=== PATIENT | male | born 1960 | race Caucasian/White ===

== ENCOUNTER → 2017-10-27 09:42 | Outpatient (CLI) | payer OTHER, SELFPAY ==
[2017-10-27 08:53] VITALS: BMI 29.0
--- NOTE | 2017-10-27 09:44 | RAD_ITS ---
STUDY: X-RAY - RIGHT SHOULDER REASON FOR EXAM: Male, 56 years old. Shoulder pain. History of rotator cuff tear. TECHNIQUE: A single axillary view(s) of the shoulder. COMPARISON: October 17, 2017 FINDINGS: The humeral head is congruent with the glenoid on the axillary view. No abnormalities are identified. RAD/Shoulder One View IMPRESSION: No abnormalities are identified. Electronically Signed: Adelfo Quevedo MD at 12:29 EST , Service support ,
== END ==
PROVIDERS: Family Provider Internal Medicine; PCP Internal Medicine; Visit Provider Orthopaedic Surgery
DX: M75.101 Unspecified rotator cuff tear or rupture of right shoulder, not specified as traumatic (principal)
CPT/HCPCS: 73020

== ENCOUNTER → 2017-11-17 10:15 | Outpatient (CLI) | payer OTHER, SELFPAY ==
--- NOTE | 2017-11-17 10:18 | MRI_ITS ---
STUDY: MRI RIGHT SHOULDER REASON FOR EXAM: Right shoulder pain and limited range of motion for 5 weeks. TECHNIQUE: Standardized fat and water weighted pulse sequences were obtained in all 3 orthogonal planes. COMPARISON: Radiographs 10/17/2017. FINDINGS: There is mild supraspinatus tendinosis and a small low-grade partial-thickness tear of the bursal surface of the distal anterior supraspinatus tendon (T2 sagittal image 10; proton density axial image 11) measuring 0.3 to 0.4 cm in diameter. Normal infraspinatus tendon. There is a small low-grade undersurface partial-thickness tear of the distal subscapularis tendon (proton density axial image 15). Normal teres minor tendon. Normal supraspinatus muscle. There is mild atrophy with mild partial fat replacement of the infraspinatus muscle (T2 sagittal images 15-20). Normal subscapularis muscle. Normal teres minor muscle. Normal glenohumeral articulation. There is mild subchondral cystic change of the greater tuberosity. There is a tear with nonvisualization of the intracapsular long biceps tendon. Normal labrum. Normal capsulo- ligamentous complex. There is acromioclavicular arthrosis without substantial undersurface osteophytes (T2 sagittal images 16, 17). There is a Type II morphology (curved), with a neutral orientation. There is a small volume of subacromial-subdeltoid bursal fluid. Normal visualized coracohumeral and coracoacromial ligaments. Normal deltoid muscle. Normal trapezius muscle. MRI/Upper Ext Joint Only(Routine) IMPRESSION: Small low-grade partial-thickness tears of the supraspinatus and subscapularis tendons. Mild atrophy of the infraspinatus muscle. Tear of the long biceps tendon. Acromioclavicular arthrosis. Mild subacromial-subdeltoid bursitis. Electronically Signed: Teo Butler MD at 11:32 EST Tel , Service support ,
== END ==
PROVIDERS: Family Provider Internal Medicine; PCP Internal Medicine; Visit Provider Orthopaedic Surgery
DX: M75.101 Unspecified rotator cuff tear or rupture of right shoulder, not specified as traumatic (principal); M75.41 Impingement syndrome of right shoulder
CPT/HCPCS: 73221

== ENCOUNTER 2017-12-07 08:52 | Day surgery (SDC) | payer OTHER, SELFPAY ==
--- NOTE | 2017-12-02 12:00 | EKG12_ITS ---
Test Reason : PRE OP Blood Pressure : / mmHG Vent. Rate : 069 BPM Atrial Rate : 069 BPM P-R Int : 152 ms QRS Dur : 098 ms QT Int : 368 ms P-R-T Axes : 073 087 070 degrees QTc Int : 394 ms Normal sinus rhythm Normal ECG Confirmed by LUCY BLUM, BC ([id number]), food editor LEE RONDON ([id number]) on 12/05/2017 2:37:05 PM Referred By: Mackenzie Wheatley Confirmed By:BC AYALA MD
[2017-12-02 12:25] LABS: Hematocrit 45.8 % (40-54); Hemoglobin 15.7 g/dl (13.0-16.5); Mean Corp Hgb Conc 34.3 g/gl (32-36); Mean Corpuscular Hgb 32.2 pg (27.0-32.0); Mean Corpuscular Volume 93.9 fL (80-94); Mean Platelet Vol. 9.7 fl (6.2-12.0); Platelet Count 239 K/mm3 (150-450); RBC Distribution Width CV 12.3 % (11.6-14.6); RBC Distribution Width SD 41.5 fl (35.1-43.9); Red Blood Count 4.88 M/mm3 (4.6-6.2); White Blood Count 7.6 K/mm3 (4.4-11.0)
[2017-12-02 12:28] LABS: Scan Indicated on CBC? Y/N NO
[2017-12-07] VITALS (7 sets, daily range): BP systolic 126–139; BP diastolic 78–96; PULSE 69–85; RESP 14–18; TEMP 36.1–36.8; O2SAT 92–98; BMI 29.0
[2017-12-07] MEDS: Cefazolin 2 GM in 0.9% Normal Saline 100 ML IV (11:30)
[2017-12-07] MEDS: Mupirocin Ointment 22gm Tube 1 APPLIC (13:25)
--- NOTE | 2017-12-07 13:30 | DCINST_ITS ---
Discharge Diet: No Restrictions - Remove dressings in 4 days and apply Band- Aids to incision sites, may use elbow and hand as tolerated, do pendulums 3 times daily, no overhead lifting, call with increased pain numbness tingling or further issues arise, follow-up in 2 weeks in the office, call with concerns Discharge Activity: May Not Drive May shower in (days): 1 Ice area for (Minutes): 20 - Every hour while awake. Weight Bearing Status: Weight bearing as tolerated Keep extremity elevated above heart level: Operative Extremity Call your doctor if your incision/area has: Continuous Slow Oozing, Sudden Increased Bleeding, Increased Pain/ Swelling, Increased Redness, Foul Smelling Discharge Call your doctor if you observe: Fever of 101 or Higher, Coldness, Increased Pain, Numbness or Tingling, Change in Color, Calf discomfort Allergies/Adverse Reactions: Allergies No Known Allergies Allergy (Verified 12/01/17 15:08) Medications to take at Discharge amlodipine 5 mg tablet 5 mg PO QDAY #30 tab 10/17/17 Pantoprazole Sodium 40 mg PO DAILY 12/01/17 Oxycodone HCl/Acetaminophen [Percocet 5/325] 1 - 2 tablet PO Q6H PRN PRN 5 Days #60 tablet 12/07/17 Zolpidem Tartrate [Ambien (Generic)] 5 mg PO QHS PRN PRN #14 tablet 12/07/17 The following prescriptions were given: Oxycodone HCl/Acetaminophen [Percocet 5/325] 1 - 2 tablet PO Q6H PRN PRN 5 Days #60 tablet PRN Reason: Pain Zolpidem Tartrate [Ambien (Generic)] 5 mg PO QHS PRN PRN #14 tablet PRN Reason: Insomnia Primary Care Physician: Idalia Pierre MD [Primary Care Provider] - Please Follow Up With: Mackenzie Wheatley, - [phone]
--- NOTE | 2017-12-07 13:30 | PCM.OPRPT ---
Report of Operation Date of Procedure: 12/07/17 Pre-Operative Diagnosis: Right shoulder rotator cuff tear, subacromial impingement syndrome/type 2 acromioplasty Post-Operative Diagnosis: Same Type of Anesthesia:: General/Regional Anesthesiologist: Abdiaziz Lopez Estimated Blood Loss (mL): none Fluids Replaced: 1500ml lr Description of Procedure: Preoperative note She is a 57-year-old male with right shoulder pain. Patient failed conservative treatment had weakness with elevation and external rotation and positive liftoff. MRI confirms partial subscap and supraspinatus tear. Patient elected to proceed with right shoulder arthroscopy repair is indicated. Risks, benefits, alternatives to surgery discussed with patient. Risks including but not limited to blood loss, blood clot, infection, neurovascular injury, need for revision surgery, failure procedure, loss of life and loss of limb. Patient is aware would like proceed with right shoulder arthroscopy repair is indicated. Operative note Patient seen and examined in preoperative holding area. Patient received a preoperative regional block. Right shoulder was marked. Patient was brought to the operating room and placed supine on the operating table. Signing, anesthesia, antibiotics were administered. Patient was placed in beachchair positioning and detention through beachchair position we did recheck the blood pressure which was stable throughout. All bony prominences well-padded SCDs were placed on his bilateral lower extremity. The right arm was prepped and draped in usual sterile fashion.We then marked out our landmarks for portal placement. We insufflated the humeral joint from the posterior portal. Timeout was performed. We had good return from R 18-gauge spinal needle. We then used 11 blade to create a posterior portal. We were able to visualize the glenohumeral joint. The there are no articular delaminations or cartilage deficiencies. The biceps was torn. The subscap was torn off of the leading edge off of the after the insertion. There was fibrillated changes and remnant biceps anchor there was some fibrillated changes and unstable labral pieces as well. We then created an anterior portal under direct visualization. We will visualize the subscap in better detail we were then able to debride back for our footprint for our subscap repair. We then looked in the inferior recess there were no loose bodies. We then treated the insertional labrum or the biceps was turned back to stable rim. We were able to visualize the articular surface of the rotator cuff tear and and marked it with a spinal needle. We also debrided the undersurface of the rotator cuff as there is some fibrillated changes on the infraspinatus and supraspinous. We then moved to our repair for a subscap. We used a bur to create our footprint for our repair. We then used 2 fiber links using a fast passed into the leading edge of the [place]. We placed these through the anchor down to the pulse ox of the footprint in normal standard fashion. We had good repair of the subscap at that point in good tension and good no tension on the repair. We then moved to the subacromial space. We created a lateral portal under direct visualization. We then moved use a combination of a shaver and a burner to resect the thickened bursa he had a quite extensive exterior [place] as well. We then debrided any bursitis and some adhesions he had on the top of the acromion. He had a type II acromion which was gently resected back with a bur to a stable co-plane. We then released as much of the bursa as we could, and resected it with a shaver. We coagulated any bleeders that we did encounter. We then moved to where are we had marked out our rotator cuff tear of the leading edge of the supraspinatus. There was also torn on the cement in the subacromial articular surface because of it was torn on both sides that there is a increased risk for him tearing the entire tear tendon we did decide to repair it. Placed 2 fiber links fiber tapes and 1 fiber link and placed into a swivel lock laterally. We had great reduction of the footprint at that point. We irrigated the subacromial space with copious amounts of sterile saline. We coagulated and we coagulated any bleeders. The incisions were closed with interrupted 4-0 nylon stitches. Sterile dressings were applied. Patient was placed in a sling. The patient tolerated procedure well there are no comp occasions patient was transferred to the recovery room in stable condition. Postoperative note Nonweightbearing right shoulder Pendulums 3 times a day Hospital pharmacy has prescriptions Call with increased pain numbness tingling or further issues arise Pictures given to This note was generated with [employer] software. It may contain incorrect words, spelling, and punctuation that were not noted in checking the note before signing.
[2017-12-07] MEDS: HYDROcodone Bitartrate/Apap 5/325 Tablet PO (15:11)
== END 2017-12-07 15:40 | disposition home or self-care (01) ==
LOC: SDC 08:53 → AC 08:54
PROVIDERS: Family Provider Internal Medicine; PCP Internal Medicine; Visit Provider Orthopaedic Surgery
PROC: (CPT 29827; principal; 2017-12-07 10:15)
DX: M75.101 Unspecified rotator cuff tear or rupture of right shoulder, not specified as traumatic (principal); M75.41 Impingement syndrome of right shoulder; M75.51 Bursitis of right shoulder; S46.811A Strain of other muscles, fascia and tendons at shoulder and upper arm level, right arm, initial encounter; X58.XXXA Exposure to other specified factors, initial encounter; Y93.9 Activity, unspecified; Y92.9 Unspecified place or not applicable; Y99.9 Unspecified external cause status; I10 Essential (primary) hypertension; K21.9 Gastro-esophageal reflux disease without esophagitis; F17.200 Nicotine dependence, unspecified, uncomplicated; Z79.1 Long term (current) use of non-steroidal anti-inflammatories (NSAID); Z79.899 Other long term (current) drug therapy
CPT/HCPCS: 01630; 29826; 29827; 64415; 36415; 85027; 93005; J7120; J2405

== ENCOUNTER → 2019-05-29 10:01 | Outpatient (CLI) | payer OTHER, SELFPAY ==
[2019-05-29 08:59] VITALS: BMI 27.2
--- NOTE | 2019-05-29 10:03 | RAD_ITS ---
STUDY: X-RAY - UNILATERAL RIBS ( RIGHT ) WITH CHEST REASON FOR EXAM: Male, 58 years old. Fall. Pain. TECHNIQUE - RIBS: 4 view(s) of the ribs. TECHNIQUE - CHEST: Frontal view COMPARISON: None. FINDINGS - RIBS: There are no displaced rib fractures identified. FINDINGS - CHEST: The lungs are clear. There are no pleural effusions. There is no pneumothorax. The heart is normal in size. RAD/Ribs Uni Min 3V w/PA Chest IMPRESSION: RIBS: No displaced rib fracture identified. CHEST: Clear lungs. Electronically Signed: Boyd Zurita, at 22:37 EDT Tel , Service support ,
== END ==
PROVIDERS: Family Provider Internal Medicine; PCP Internal Medicine; Referring Provider Nurse Practitioner Family; Visit Provider Nurse Practitioner Family
DX: R07.81 Pleurodynia (principal); W19.XXXA Unspecified fall, initial encounter
CPT/HCPCS: 71101

== ENCOUNTER 2020-06-06 09:28 | Day surgery (SDC) | payer OTHER, SELFPAY ==
[2020-05-22 15:34] VITALS: BMI 27.9
--- NOTE | 2020-06-06 | LES_PTH ---
PATIENT: ELIAZAR COOK Denis LOC: [facility] [place] U#:[id number] AGE/SX: 59/M ROOM: RE06/06/[address]: Dr. Eliazar Ibarra MD : 1960 BED: DIS: 06/06/2020 SPEC #: [id number] RECD: 06/06/20 13:15 STATUS: ZHANE AUSTIN #: [id number] ORIANA: 06/06/20 00:[address]: Eliazar Ibarra DEPT: SURGICAL PATHOLOGY RECD BY: Familia Martinez ENTERED: 06/09/20 08:19 SP TYPE: Lesion OTHR DR: Dr. 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 Extensive solar elastosis. See comment. AM:stiven 06/10/20 COMMENT The carcinoma is completely excised in the planes examined. MICROSCOPIC DESCRIPTION Slides are reviewed. GROSS DESCRIPTION Received in fixative is one container labeled with the patient's name and designated left scientologist area lesion. The specimen consists of a disc of pink-florez excised skin measuring 3.2 cm in diameter and 0.4 cm in thickness. The cutaneous surface displays an irregular ulcerated area measuring 1.8 x 1.5 x 0.2 cm. A suture is present at the 12 o'clock position. The specimen is differentially inked as follows: surface - red, 12 o'clock - black, 3 o'clock - blue, 6 o'clock - green and 9 o'clock - yellow. The specimen is serially sectioned and totally submitted in three cassettes. / AM:stiven 06/09/20 TC:0 CPT: 25660
--- NOTE | 2020-06-06 08:25 | HP.PCM_ITS ---
History and Physical Date of Admission: 06/06/20 HISTORY OF PRESENT ILLNESS 59 year old man presents with a nonhealing ulcerated lesion on his left buddhism/preauricular area that had been increasing in size over the last several months. He went to see Dermatology who performed a shave biopsy on 04/21/20. It showed a nodular basal cell carcinoma. He denies fever. He denies trauma. He denies recent infection. There is intermittent drainage. Denies bleeding. He presents at this time for further evaluation and treatment. PAST MEDICAL HISTORY Basal cell carcinoma of left buddhism region Hearing problem History of pneumonia Stomach ulcer Vision problems High blood pressure PAST SURGICAL HISTORY right shoulder basal cell carcinoma excision ALLERGIES No Known Allergies MEDICATIONS Pantoprazole Sodium amlodipine FAMILY HISTORY Father - Myocardial infarction, CVA (cerebral vascular accident) Mother - Arthritis, Melanoma Other - Alcoholism SOCIAL HISTORY Smoking Status: Current every day smoker Tobacco: How many years used: 40 second hand exposure: Yes alcohol intake: current alcohol intake frequency: a few times a week Alcohol type: beer substance use type: does not use REVIEW OF SYSTEMS General - Denies fever and weight loss. Has fatigue. Eyes - Denies cataracts and glaucoma. ENT - Denies nasal congestion and sore throat. Endocrine - Denies excessive thirst and urination. Skin - Has personal history of skin cancer. Has enlarging ulcerated lesion left buddhism/preauricular area that was biopsied on 04/21/20 and showed a nodular basal cell carcinoma. Has family history of skin cancer. Musculoskeletal - Denies joint pain, joint stiffness, weakness of muscles and joints, back pain. Denies arthritis. Neuro - Has headaches. Cardiovascular - Denies chest pain, fatigue, and shortness of breath with exertion. Psych - Denies anxiety and depression. Respiratory - Denies chronic cough and shortness of breath. Patient is a smoker . Gastrointestinal - Denies nausea, vomiting, diarrhea, and constipation. Hematologic - Denies abnormal bruising and bleeding. Genitourinary - Denies hematuria and urinary frequency. PHYSICAL EXAMINATION General - Alert and Oriented. HEENT - PERRL. EOMI. Throat is clear. On the left buddhism/preauricular area is an ulcerated lesion that measures 1.8 x 1.2 cm. Has irregular borders. Nontender. No other suspicious lesions noted. Neck - Supple and nontender. No cervical adenopathy. No suspicious lesions noted. Lungs - Clear to auscultation. Heart - Regular rate and rhythm. Abdomen - Soft and nondistended. Extremities - FROM. No axillary adenopathy. Radial pulses are palpable. No suspicious lesions noted. Neuro - CN II-XII grossly intact. Psych - Normal mood and affect. ASSESSMENT 1. 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 2. Personal history of skin cancer. 3. Family history of skin cancer. 4. Smoker. PLAN Pathology reviewed. It was a shave biopsy that showed an ulcerated nodular basal cell carcinoma. Recommend excision of this ulcerated basal cell carcinoma and send it to Pathology to evaluate carcinoma at the margins. The lesion is close to 2 cm and is ulcerated, so will do a 1 cm margin in all directions. The size of the defect would necessitate a large cheek flap or cervicofacial flap. Patient is a smoker, so it would be safer to proceed with skin grafting. Later on after the skin graft has healed and he has a chance to stop smoking, can then proceed with excision of the skin graft scar with skin flap reconstruction. Due to the large size of the flap, if done, a drain would be necessary. Surgery will be done under general anesthesia on an outpatient basis. Patient was informed of the risks and complications of the procedure including alternatives to surgery. These were discussed with the patient personally. Patient voices understanding and wishes to proceed. Some of the risks and complications were included in a form from the [employer] [employer]. Encouraged patient to stop smoking as it may have deleterious effects on wound healing. We discussed the current risks associated with COVID-19. While it is understood that there is a community spread of COVID-19, the risk of brandi COVID-19 while at [facility] ([facility]) is very low; however, the risk cannot be completely mitigated because of the community spread of the disease. We discussed in detail the risk of exposure to and/or potential harm posed by the COVID-19 virus with having a surgery/procedure at this time versus the risk of delaying the surgery/procedure. It is not possible to know either the risk of delaying the surgery or procedure or chance of getting an infection with perfect accuracy, but a joint decision was made to proceed at this time with the scheduled surgery/procedure as indicated on the consent form. Patient was notified that we will need to comply with any screening or testing [facility] wishes to perform or that surgery may be delayed for any positive results. Discussed with the patient that I was tested for COVID-19 on 03/27/20 which was negative and on 04/10/20 which was negative and on 04/24/20 which was negative and on 05/08/20 which was negative and on 05/22/20 which was negative. My testing regimen at this time is to be COVID-19 tested every 2 weeks or so. Procedure Criteria Procedure Type: Elective COVID Risk Discussion: The surgeon/proceduralist and patient have discussed in detail the risk of exposure to and/or potential harm posed by the COVID-19 virus with having a surgery/procedure at this time versus the risk of delaying the surgery/procedure. It is not possible to know either the risk of delaying the surgery or procedure or chance of getting an infection with perfect accuracy, but a joint decision was made between the patient and the surgeon/proceduralist to proceed at this time with the scheduled surgery/procedure as indicated on the consent form.
[2020-06-06 09:48] VITALS: BP 157/82; PULSE 77; RESP 16; TEMP 36.3; O2SAT 99; BMI 28.0
[2020-06-06] MEDS: Lactated Ringers 1,000 ML 100 ML IV ×2 (10:16→13:23)
[2020-06-06] MEDS: Mupirocin Ointment 22gm Tube 1 APPLIC (12:16)
--- NOTE | 2020-06-06 12:48 | PCM.OPRPT ---
Report of Operation Date of Procedure: 06/06/20 Pre-Operative Diagnosis: 1. 1.8 cm ulcerated nodular basal cell carcinoma left nondenominational/preauricular area. 2. Personal history of skin cancer. 3. Family history of skin cancer. 4. Smoker. Post-Operative Diagnosis: Same. Surgery/Procedure Performed:: Excision 1.8 cm ulcerated nodular basal cell carcinoma left nondenominational/preauricular area with FTSG reconstruction from left neck (14.4 cm2) and placement AmnioFill placental connective tissue powder, 250 mg. Description of Surgical Findings:: 59 year old man presents with a nonhealing ulcerated lesion on his left nondenominational/preauricular area that had been increasing in size over the last several months. He went to see Dermatology who performed a shave biopsy on 04/21/20. It showed a nodular basal cell carcinoma. He denies fever. He denies trauma. He denies recent infection. There is intermittent drainage. Denies bleeding. Patient was informed of the risks and complications of the procedure including alternatives to surgery. These were discussed with the patient personally. Patient voices understanding and wishes to proceed. Some of the risks and complications were included in a form from the [employer]. Encouraged patient to stop smoking as it may have deleterious effects on wound healing. Size of skin graft left nondenominational/preauricular area - 3.8 x 3.8 cm. I used AmnioFill Placental Connective Tissue Powder, 250 mg. Catalog Number - [id number]. Lot Number - [id number]. Expiration - December 25, 2024. assistant manager airside operations: Adrien Linares. Type of Anesthesia:: General Specimen's removed: Ulcerated nodular basal cell carcinoma left nondenominational/preauricular area to Pathology. Drains: None. Estimated Blood Loss (mL): 25 ml. Description of Procedure: Patient was taken to OR in supine position and was placed under general anesthesia. The left face and left neck areas were prepped and draped in the usual fashion. SCD's were placed for DVT prophylaxis. Perioperative antibiotics were given intravenously. For the procedure, I wore an N95 mask and wore proper eyewear protection. Using xylocaine with epinephrine, the ulcerated basal cell carcinoma left nondenominational/preauricular area and the left neck areas were infiltrated. After waiting 5 minutes for the anesthetic to take effect, I made an elliptical incision left neck into the subcutaneous tissue. The subcutaneous tissue was removed from the undersurface of the skin thus fashioning a full thickness skin graft. The skin graft was placed in saline. Hemostasis was obtained with electrocautery. The donor incision was closed in a layered fashion with 5-0 Monocryl interrupted sutures for the deep dermis and subcutaneous tissue. The skin was approximated with 5-0 Prolene simple interrupted sutures. Using a separate scalpel, the ulcerated basal cell carcinoma left nondenominational/preauricular area was excised with a 1 cm margin in all directions down into the subcutaneous tissue. Excision went down to the underlying muscle as there appeared to be no adherence and scarring on the muscle that may indicate involvement of the muscle with the ulcerated carcinoma. A suture was marked at the 12 oclock position. The lesion was sent to Pathology for analysis to rule out carcinoma at the margins. Hemostasis was obtained with electrocautery. The defect extended to the helical root. The size of the defect to be skin grafted was 3.8 x 3.8 cm or 14.44 cm2. The full thickness skin graft was placed in the defect and secured to the skin edges with 5-0 Chromic simple interrupted sutures. Because the patient is a smoker, will improve the healing of the skin graft with placement of AmnioFill placental connective tissue powder into the wound defect before securing the skin graft. I used 250 mg. 5-0 Chromic sutures were also used for central quilting stabilization. Antibiotic ointment was applied to the skin graft followed by Xeroform gauze and cotton balls soaked in saline and secured to the skin with 4-0 Nylon tie over stent suture dressing. For the donor incision left neck, antibiotic ointment was applied to the suture line followed by gauze dressing. Patient tolerated the procedure well and was sent to PACU in satisfactory condition. Patient will be sent home on antibiotics and pain medication. He will keep his head elevated during the initial postoperative period. Patient will followup in a week for takedown of the skin graft dressing with a wound check and for discussion of the pathology report. The donor incision sutures may be removed in 1-2 weeks. Grafts/Implants Used: AmnioFill placental connective tissue powder. - Complications None. - Admit VTE Documentation VTE Present on Admission: No VTE Mechan Device Prophylaxis: SCD's VTE Pharm Prophylaxis ordered?: No Surgery Charges CPT - 45406 ICD-10 - C44.319, Z85.828, Z80.8, F17.200 12665 C44.319, Z85.828, Z80.8, F17.200
[2020-06-06 12:56] VITALS: BP 143/90; BP 157/82; PULSE 81; RESP 16; TEMP 36.6; O2SAT 95
--- NOTE | 2020-06-06 12:56 | DCINST_ITS ---
You will use the following diet at home:: No restrictions Discharge Activity: May not drive while taking narcotic pain medications., May Shower - in two days from the neck. may wash face gently in the sink. minimize getting the facial skin graft dressing wet., - - keep head elevated. no heavy iifting. May shower in (days): 2 - from the neck down. May resume sexual activity in: No Restrictions Ice area for (Minutes): 5 - as needed for facial swelling. Weight Bearing Status: Weight bearing as tolerated Lifting Restrictions: 10 lbs. Keep extremity elevated above heart level: - - elevate head. Call your doctor if your incision/area has: Continuous Slow Oozing, Sudden Increased Bleeding, Increased Pain/ Swelling, Increased Redness, Foul Smelling Discharge, Swelling at the incision site Call your doctor if you observe: Fever of 101 or Higher, Coldness, Increased Pain, Shortness of breath, Chest pain, Uncontrolled pain Change Dressing in (Days):: 6 - will change the operative skin graft dressing left yarsanism area in the office. Remove Dressing in (days):: 2 - may remove the left neck dressing in two days. Cleanse incision/area with: - - mqay shower from the neck down in two days. wash face gently in the sink. Allergies/Adverse Reactions: Allergies No Known Allergies Allergy (Verified 05/29/20 14:01) Medications to take at Discharge Pantoprazole Sodium 40 mg PO DAILY 12/01/17 Amlodipine Besylate [Norvasc] 5 mg PO DAILY 05/29/20 Clindamycin HCl [Cleocin] 300 mg PO Q6H #18 cap 06/06/20 Lactobacillus Acidophilus/Fos [Acidophilus Probiotic Tablet] 1 ea PO BID #20 tab 06/06/20 Oxycodone HCl/Acetaminophen [Percocet 5/325] 1 tablet PO Q6H PRN PRN 7 Days #28 tablet 06/06/20 The following prescriptions were given: Lactobacillus Acidophilus/Fos [Acidophilus Probiotic Tablet] 1 ea PO BID #20 tab Transmission Status: Pending to [facility] Clindamycin HCl [Cleocin] 300 mg PO Q6H #18 cap Transmission Status: Pending to [facility] Oxycodone HCl/Acetaminophen [Percocet 5/325] 1 tablet PO Q6H PRN PRN 7 Days #28 tablet PRN Reason: Pain Score 6-10 Transmission Status: Sent to [facility] Primary Care Physician: Idalia Pierre MD [Primary Care Provider] - Test Results: Test results from this visit will be discussed in further detail at your follow- up appointment, if applicable. Please Follow Up With: Kadeem Ibarra MD When: one week. call [phone] for appt. Proposed Discharge Date: 06/06/20
--- NOTE | 2020-06-06 13:13 | PCM.WORK.EX ---
Work/School Excuse Work/School Excuse for:: Patient Please excuse this person from:: Work From: 06/06/20 through: 06/15/20 Restrictions: No Heavy Lifting - 10 lb lifting restriction until 07/14/20.
[2020-06-06 13:14] VITALS: BP 143/92; BP 157/82; PULSE 84; RESP 14; O2SAT 95
[2020-06-06 13:29] VITALS: BP 135/84; BP 157/82; PULSE 80; RESP 16; O2SAT 91
[2020-06-06 13:35] VITALS: BP 152/86; BP 157/82; PULSE 81; RESP 16; TEMP 36.6; O2SAT 96
[2020-06-06] MEDS: Acetaminophen 325 MG Tablet PO (14:08)
[2020-06-06] MEDS: oxyCODONE 5 MG Tablet PO (14:08)
[2020-06-06 14:33] VITALS: BP 135/85; BP 157/82; PULSE 84; RESP 16; TEMP 36.3; O2SAT 96
== END 2020-06-06 14:39 | disposition home or self-care (01) ==
LOC: SDC 09:28 → AC 09:29
PROVIDERS: Anesthesiology; PCP Internal Medicine; Referring Provider Surgery; Visit Provider Surgery
PROC: (CPT 11646; principal; 2020-06-06 10:40)
DX: C44.319 Basal cell carcinoma of skin of other parts of face (principal); I10 Essential (primary) hypertension; Z11.59 Encounter for screening for other viral diseases; F17.200 Nicotine dependence, unspecified, uncomplicated; Z79.899 Other long term (current) drug therapy; Z85.828 Personal history of other malignant neoplasm of skin
CPT/HCPCS: 00300; 11646; 15240; 87635; 88305; C9803; J7120; J2405; U0003

== ENCOUNTER → 2020-07-16 | Outpatient (CLI) | payer OTHER, SELFPAY | END | disposition home or self-care (01) | LOC: LABSPEC 18:09 | PROVIDERS: PCP Internal Medicine; Visit Provider Nurse Practitioner Family | DX: T86.828 Other complications of skin graft (allograft) (autograft) (principal); C44.319 Basal cell carcinoma of skin of other parts of face; F17.200 Nicotine dependence, unspecified, uncomplicated; Z85.828 Personal history of other malignant neoplasm of skin; Z80.8 Family history of malignant neoplasm of other organs or systems | CPT/HCPCS: 87070; 87075; 87186; 87205 ==

== ENCOUNTER → 2020-10-01 11:05 | Outpatient (CLI) | payer OTHER, SELFPAY ==
[2020-09-01 13:26] VITALS: BMI 29.0
--- NOTE | 2020-10-01 11:06 | MRI_ITS ---
STUDY: MRI RIGHT SHOULDER REASON FOR EXAM: Right shoulder injury 1 month ago, decreased range of motion, rotator cuff repair 2.5 years ago. TECHNIQUE: Standardized fat and water weighted pulse sequences were obtained in all 3 orthogonal planes. COMPARISON: Radiographs 09/01/2020 and MRI images 11/17/2017. FINDINGS: There is a full-thickness tear of the supraspinatus tendon extending into the anterior infraspinatus tendon retracted approximately 4.6 cm to the level of the glenoid (T2 coronal images 7-16). There is an undersurface partial-thickness tear of the subscapularis tendon (T2 axial images 12-14). Normal teres minor tendon. There is mild atrophy with mild partial fat replacement of the supraspinatus and infraspinatus muscles (T2 sagittal images 21-25). There is atrophy with partial fat replacement of the subscapularis muscle (T2 axial image 16). Normal teres minor muscle. There is a glenohumeral joint effusion with synovitis (T2 sagittal images 11, 12). There is an anchor in the humeral head. There is nonvisualization of the long biceps tendon as on the prior study consistent with chronic tear. There is no demonstrated labral tear. There is acromioclavicular arthrosis with mild hypertrophic changes (T2 sagittal image 16). There is a Type II morphology (curved), with a neutral orientation. There is subacromial-subdeltoid bursal fluid. Normal deltoid muscle. Normal trapezius muscle. MRI/Upper Ext Joint Only(Routine) IMPRESSION: Full-thickness tear of the supraspinatus tendon extending into the anterior infraspinatus tendon. Undersurface partial-thickness tear of the subscapularis tendon. Atrophy of the subscapularis muscle and mild atrophy of the supraspinatus and infraspinatus muscles. 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 Acromioclavicular arthrosis. Glenohumeral joint synovitis. Glenohumeral joint fluid communicating with the subacromial-subdeltoid bursa. Electronically Signed: Teo Butler MD at 12:45 EST Tel , Service support ,
== END ==
PROVIDERS: PCP Internal Medicine; Referring Provider Orthopaedic Surgery; Visit Provider Orthopaedic Surgery
DX: M75.101 Unspecified rotator cuff tear or rupture of right shoulder, not specified as traumatic (principal)
CPT/HCPCS: 73221

== ENCOUNTER 2020-10-22 05:58 | Day surgery (SDC) | payer OTHER, SELFPAY ==
[2020-09-01 13:26] VITALS: BMI 29.0
--- NOTE | 2020-10-21 11:41 | EKG12_ITS ---
Test Reason : PRE SURGERY Blood Pressure : / mmHG Vent. Rate : 081 BPM Atrial Rate : 081 BPM P-R Int : 156 ms QRS Dur : 092 ms QT Int : 348 ms P-R-T Axes : 076 099 057 degrees QTc Int : 404 ms Normal sinus rhythm Biatrial enlargement Septal infarct , age undetermined Abnormal ECG Confirmed by GEE BLUM, EMMANUEL ([id number]), assistant editor STEFAN COLIN ([id number]) on 10/21/2020 2:59:28 PM Referred By: Mackenzie Wheatley Confirmed By:EMMANUEL FLYNN MD
[2020-10-21 12:41] LABS: Hematocrit 45.3 % (40-54); Hemoglobin 15.9 g/dL (13.0-16.5); Mean Corp Hgb Conc 35.1 g/dL (32-36); Mean Corpuscular Hgb 33.2 pg (27.0-32.0); Mean Corpuscular Volume 94.6 fL (80-94); Mean Platelet Vol. 9.8 fl (6.2-12.0); Platelet Count 276 K/mm3 (150-450); Red Blood Count 4.79 M/mm3 (4.6-6.2); White Blood Count 9.5 K/mm3 (4.4-11.0)
--- NOTE | 2020-10-22 05:17 | HP_ITS ---
I have re-examined the patient. There are no clinical changes since date of exam. Intake Intake Visit Reasons: RIGHT SHOULDER Accompanied by: Spouse Is patient in pain?: Yes Pain scale (1-10): 4 Allergies No Known Allergies Allergy (Verified 10/07/20 13:10) Medications Pantoprazole Sodium 40 mg PO DAILY 12/01/17 [History Confirmed 10/07/20] [facility] Medical History (Updated 10/07/20 @ 15:17 by Nury Ramirez) Basal cell carcinoma of left jainism region (Acute) Hearing problem (Acute) History of pneumonia (Acute) Stomach ulcer (Acute) Vision problems (Acute) spot removed from face (Acute) High blood pressure (Chronic) Surgical History s/p right shoulder (Acute) History of basal cell carcinoma excision (Chronic) Family History Father Myocardial infarction, Onset Age: 60 CVA (cerebral vascular accident) Mother Arthritis Melanoma Other Alcoholism Social History (Updated 09/02/20 @ 12:[address] Mackenzie Wheatley, ) Smoking Status: Heavy Smoker (>10/day) Tobacco: How many years used: 40 second hand exposure: Yes alcohol intake: current alcohol intake frequency: a few times a week Alcohol type: beer substance use type: does not use what type of physical activity do you participate in: walking frequency: daily seatbelt use: always additional social history: DOES NOT TAKE ASPIRIN DOES NOT TAKE IBUPROFEN HPI RIGHT SHOULDER: Surgical H&P: Yes Details: Parts of this documentation were recorded by a scribe, this documentation accurately reflects the service provided and the decisions made by me, Dr. Mackenzie Wheatley DO 10/07/20 1305. ELIAZAR COOK is a 59 year old M here today for review of his MRI. MRI was obtained: 10/01/2020. Patient reports a burning and tightening sensation with his right shoulder. DOI: 08/30/2020 d/t a fall. Patient has to pop to unlock his shoulder to have ROM. Patient has not drove since his injury d/t fear. AC Joint is also popping. Patient has difficulty with sleeping at night. ROS [facility] Reports system reviewed and no additional complaints, except as docu, Reports joint pain, Reports other (burning and tightening sensation) Ortho Exam Right Shoulder Date of injury: 08/30/20 Date of Surgery: 12/07/17 Assessment & Plan Problems 1. Tear of right rotator cuff, unspecified tear extent M75.101 Plan Personally reviewed the MRI results obtained. Explained to patient and his spouse, he re-tore his rotator cuff. Options offered today: do nothing, steroid injections, physical therapy, and/or surgical intervention for revision. If patient chooses to do nothing, patient will have atrophy in six months and would not have success with revision. Advised an option for surgery could be a FCR graft with post-op eight weeks in a sling. Obtained X-rays of patient's right shoulder. Personally reviewed X-rays. There is no obvious fracture, dislocation, or lucency noted. See chart for further details. Reviewed the pre-operative plans with the patient. Risks and benefits of the procedure were fully explained, including but not limited to infection, neurovascular injury, continued pain, arthritis, stiffness, need for further surgery, re-injury, DVT, PE, general risks of anesthesia, and loss of limb or life. The patient understands all the risks and does wish to proceed with written consent. Patient is to stop physical therapy for now. All questions answered. Patient in agreement of plan. Follow up post-op or sooner if pain, swelling, numbness or associated symptoms, or concerns develop. Discussed with patient that he has a massive rotator cuff he is a candidate for a graft if his as subscap is intact there is questionable arthritis already but this is truly an acute tear we have to take the mobility of his rotator cuff if his subscap is intact we would do a superior capsule reconstruction and possible graft augmented we can get his cuff mobilized. Patient is aware of most of his pain is coming from his AC joint but we would evaluate his rotator cuff to see if that was able to be repaired if not we will at least do a distal clavicle excision. Orders Orders: Shoulder min 2 Views Today M75.101 Plan Detail Follow Up post-op Coding Diagnoses Tear of right rotator cuff, unspecified tear extent M75.101 ??Rotator cuff tear extent: unspecified tear extent
[2020-10-22 06:42] VITALS: BP 157/99; PULSE 90; RESP 16; TEMP 36.7; O2SAT 98; BMI 29.7
[2020-10-22] MEDS: Lactated Ringers 1,000 ML 100 ML IV (06:42)
[2020-10-22] MEDS: Cefazolin 2 GM in 0.9% Normal Saline 100 ML IV (07:57)
[2020-10-22] MEDS: Epinephrine (1 mg/ml) 1 MG/ML VIAL (08:11)
--- NOTE | 2020-10-22 09:47 | PCM.DC.ORTHO ---
Discharge Diet: No Restrictions - use arm as tolerated, may remove sling when comfortable, stop sling over next 2-3 days, call with concerns, may get incision wet and change dressing pod 4, apply bandaids to incision sites Discharge Activity: May Not Drive May shower in (days): 1 Ice area for (Minutes): 20 - Every hour while awake. Weight Bearing Status: Weight bearing as tolerated Keep extremity elevated above heart level: Operative Extremity Call your doctor if your incision/area has: Continuous Slow Oozing, Sudden Increased Bleeding, Increased Pain/ Swelling, Increased Redness, Foul Smelling Discharge Call your doctor if you observe: Fever of 101 or Higher, Coldness, Increased Pain, Numbness or Tingling, Change in Color, Calf discomfort Allergies/Adverse Reactions: Allergies No Known Allergies Allergy (Verified 10/22/20 06:24) Medications to take at Discharge Pantoprazole Sodium 40 mg PO DAILY 12/01/17 Oxycodone HCl/Acetaminophen [Percocet 5/325] 1 - 2 tab PO Q6H PRN PRN 5 Days #28 tab 10/22/20 Zolpidem Tartrate [Ambien (Generic)] 5 mg PO QHS PRN PRN #14 tab 10/22/20 The following prescriptions were given: Zolpidem Tartrate [Ambien (Generic)] 5 mg PO QHS PRN PRN #14 tab PRN Reason: Insomnia Transmission Status: Sent to [facility] Oxycodone HCl/Acetaminophen [Percocet 5/325] 1 - 2 tab PO Q6H PRN PRN 5 Days #28 tab PRN Reason: Pain Transmission Status: Sent to [facility] Primary Care Physician: Idalia Pierre MD [Primary Care Provider] - Test Results: Test results from this visit will be discussed in further detail at your follow-up appointment, if applicable. Please Follow Up With: Mackenzie Wheatley, DO - [phone]
--- NOTE | 2020-10-22 09:48 | PCM.OPRPT ---
Report of Operation Date of Procedure: 10/22/20 Pre-Operative Diagnosis: right shoulder massive rotator cuff tear, bursitis, ac arthritis, h/o previous repair Post-Operative Diagnosis: same Surgery/Procedure Performed:: sars, rc debridement, synovectomy, distal clavicle excision, extensive debridement, acromioplasty roving teller: Milan Chinchilla Type of Anesthesia:: General/Regional Anesthesiologist: Abdiaziz Lopez Estimated Blood Loss (mL): min Fluids Replaced: 1300ml Description of Procedure: Preop note Patient is a 59-year-old male who fell in the shower injuring his right shoulder. Patient difficulty moving his arm followed up with physical therapy right continued to have pain over his AC joint MRI confirms a massive rotator cuff tear which looks chronic in nature but there is some fluid questionable there is an acute acute process to it. Most of his pain is the AC joint. Risk-benefit and alternatives surgery discussed with patient. Patient failed conservative treatment options did consider treatment options about 2 months of pain with the AC joint elected to proceed with distal clavicle excision. Please note that we did do an x-ray that showed it was no AC separation he most likely on physical exam feels like he is popping he has an arthritis of his AC joint that is worsening and may have just because some irritation of the screws as were most of his pain is. Again he has no instability of his AC joint muscle and just arthritis which is quite painful to him on physical exam. Risk benefits and alternatives were discussed with patient. Patient the risks are restaurant but not limited to blood loss blood clots infection neurovascular G. Failure procedure loss of limb and loss of life. Patient is aware would like to proceed with right shoulder arthroscopy repair as indicated. We did discuss the operative potential option of using a graft if his cuff is partially reparable of his subscap is intact either for an augment or an SCR. Patient is a smoker he is not the best candidate he also looks like he has some arthritis which we see is not a great candidate as well however due to the fact that this we are going to do a scope distal clavicle excision we will evaluate his rotator cuff for proper ability at that time as well. Operative note Patient seen examined preop holding area. Right shoulder was marked. Patient brought to the operating room placed supine on the operative table. Signed, anesthesia, antibiotics were administered. Right arm was prepped and draped usual sterile technique after patient was placed in beachchair positioning. Patient's blood pressure was checked half-way through beachchair positioning was stable throughout. All bony promises well-padded SCDs placed on his bilateral lower extremity. The right arm was prepped and draped usual SPECT technique we marked out our bony landmarks for portal placement. Timeout was performed. We then insufflated the glenohumeral joint for the posterior aspect we got good return. Began our diagnostic arthroscopy. We used a 11 blade to create a posterior portal. He had grade 3 changes of the humeral head and the glenoid extensive thinning he was a little [id number] actually in the anterior inferior and glenoid as well as the humeral head. Please note that prior to surgery we did evaluate him and he did sublux did have pain over that AC joint as well we did discuss that that is where most of his pain is coming from his we did evaluate this on Intra-Op and assume that it to assure that it was stable and AC joint was stable upon evaluation Intra-Op as well. We then created a lateral portal created anterior portal under direct visualization. The subscap was torn off. His supraspinatus was torn off the level of the glenoid his infraspinatus was torn off and a reverse and resected back first. We then did a extensive debridement of the bursitis that was throughout. We coplaned his acromion which was quite thickened and hypertrophic. We then went back to the rotator cuff to see if by releasing adhesions we can move the supraspinatus over to repair his rotator cuff which we were unable to get any amount of excursion of the supraspinatus. Made a little bit of movement from his infra but not enough to even do a marginal convergence or do a release on his supraspinatus to bring it over. He would been a better candidate for superior capsular reconstruction however the fact that his subscap was off and his arthritis and the fact that he is a smoker makes him a less than ideal candidate for any kind of graft fixation. Also preoperatively he did have good range of motion of his right shoulder that might just the pain of his AC joint was limiting him from being able to do his activities of daily living. After debriding back the rotator cuff doing some releases and realized they were not able to bring it back to the footprint which would have been his best chance of a rotator cuff repair due to the above mentioned morbidities we did proceed with our trans-AC portal and debrided back about 7 mm from his clavicle and 3 mm from his acromion took multiple pictures to show our distal clavicle excision which is about total of centimeter in width after we were complete. The shoulder was irrigated with copious muscle sterile saline repleted and coagulate any bleeders that we did encounter. The portals were closed with interrupted 4 nylon stitches. Sterile dressings were applied. Patient sling was applied. Patient taught procedure well no complication transfer recovery room stable condition Postoperative note Discussed with will follow up with patient in 2 weeks Get patient pictures in 2 weeks Pharmacy has prescriptions Call with increased pain numbness tingling further issues arise [place] disclaimer Rubén Reid we discussed the current risk associated COVID-19. While it is understood that there is a community spread of COVID 19 the risk of brandi COVID-19 while at [facility] is very low, however, the risk cannot be completely mitigated because of the community spread of the disease. We discussed in detail the risk of exposure to and or potential harm posed by the COVID-19 virus with having a surgery/procedure at this time versus the risk of delaying the surgery/procedure. Is not possible to know either the risk of delaying the surgery procedure or chance of getting an infection with perfect accuracy, but a joint decision was made to proceed at this time with a schedule surgery/procedure as indicated on the consent form. Patient was notified that we will need to comply with any screening or testing [facility] wishes to perform or that surgery may be delayed for any positive results.
[2020-10-22] MEDS: Mupirocin Ointment 22gm Tube 1 APPLIC (09:55)
[2020-10-22 10:06] VITALS: BP 144/77; BP 157/99; PULSE 69; RESP 18; TEMP 36.2; O2SAT 96
[2020-10-22 10:18] VITALS: BP 142/71; BP 157/99; PULSE 70; RESP 18; O2SAT 95
[2020-10-22 10:34] VITALS: BP 125/79; BP 157/99; PULSE 82; RESP 20; O2SAT 93
[2020-10-22 10:37] VITALS: BP 136/87; BP 157/99; PULSE 69; RESP 18; TEMP 36.3; O2SAT 93
[2020-10-22 12:03] VITALS: BP 137/91; BP 157/99; PULSE 96; RESP 18; TEMP 36.6; O2SAT 95
== END 2020-10-22 12:06 | disposition home or self-care (01) ==
LOC: SDC 05:59 → AC 05:59
PROVIDERS: Anesthesiology; PCP Internal Medicine; Referring Provider Orthopaedic Surgery; Visit Provider Orthopaedic Surgery
PROC: (CPT 29827; principal; 2020-10-22 07:10)
DX: M75.101 Unspecified rotator cuff tear or rupture of right shoulder, not specified as traumatic (principal); M75.51 Bursitis of right shoulder; M19.011 Primary osteoarthritis, right shoulder; I10 Essential (primary) hypertension; K21.9 Gastro-esophageal reflux disease without esophagitis; F17.200 Nicotine dependence, unspecified, uncomplicated
CPT/HCPCS: 29824; 29826; 29827; 64415; 36415; 85027; 87426; 93005; C9803; J7120; J2405

== ENCOUNTER → 2022-10-07 | Outpatient (CLI) | payer OTHER, SELFPAY ==
[2022-10-07 16:47] LABS: Absolute Lymphocyte Count 2.98 X10^3/uL (0.83-4.51); Absolute Neutrophil Count 5.5 X10^3/uL (2.0-7.7); Basophil# 0.04 X10^3/uL; Basophil% 0.4 % (0-1); Eosinophil# 0.09 X10^3/uL; Hematocrit 45.8 % (40-54); Lymphocyte # 2.98 X10^3/ul (0.83-4.51); Lymphocyte % 31.6 % (19-41); Mean Corp Hgb Conc 34.9 g/dL (32-36); Mean Corpuscular Hgb 33.1 pg (27.0-32.0); Mean Corpuscular Volume 94.8 fL (80-94); Mean Platelet Vol. 10.5 fl (6.2-12.0); Monocyte# 0.82 X10^3/uL; Monocyte% 8.7 % (0-10); NRBC Flagged by Analyzer 0 % (0-5); Neutrophil # 5.47 X10^3/uL (2.7-7.7); Neutrophil % 58.1 % (47-70); Platelet Count 284 K/mm3 (150-450); RBC Distribution Width CV 11.5 % (11.6-14.6); RBC Distribution Width SD 39.8 fl (35.1-43.9); Red Blood Count 4.83 M/mm3 (4.6-6.2); White Blood Count 9.4 K/mm3 (4.4-11.0)
[2022-10-07 17:34] LABS: ALB/GLOB Ratio 1.2 RATIO (0.9-2.4); AST(SGOT) 10 U/L (15-37); Alanine Aminotransfer ALT/SGPT 21 U/L (16-61); Albumin, Serum 3.8 g/dL (3.2-5.0); Alkaline Phosphatase 79 U/L (45-117); Anion Gap 4 (5-15); BUN 20 mg/dL (7-18); BUN/Creat Ratio 22.8 RATIO (10-20); Chloride 106 mmol/L (98-107); Cholesterol 278 mg/dL (200); Creatinine, Serum 0.88 mg/dL (0.70-1.30); EST Glomerular Filtration Rate 93 mL/min (>60); Est Glom Filt Rate - Afr Amer 113 mL/min (>60); Globulin 3.2 g/dL (2.2-4.2); Glucose 117 mg/dL (74-106); High Density Lipoprotein 42 mg/dL; Sodium Level 138 mmol/L (136-145); Triglycerides 480 mg/dL
== END | disposition home or self-care (01) ==
LOC: BIMLAB 14:35
PROVIDERS: PCP Internal Medicine; Referring Provider Internal Medicine; Visit Provider Internal Medicine
DX: I10 Essential (primary) hypertension (principal)
CPT/HCPCS: 36415; 80053; 80061; 85025

== ENCOUNTER → 2022-12-31 | Outpatient (CLI) | payer OTHER, SELFPAY ==
[2022-12-31 13:41] LABS: ALB/GLOB Ratio 1.1 RATIO (0.9-2.4); AST(SGOT) 25 U/L (15-37); Alanine Aminotransfer ALT/SGPT 33 U/L (16-61); Albumin, Serum 3.4 g/dL (3.2-5.0); Alkaline Phosphatase 157 U/L (45-117); Anion Gap 10 (5-15); BUN 11 mg/dL (7-18); BUN/Creat Ratio 13.4 RATIO (10-20); Calcium,Total 8.8 mg/dL (8.5-10.1); Chloride 104 mmol/L (98-107); Cholesterol 252 mg/dL (200); Creatinine, Serum 0.82 mg/dL (0.70-1.30); EST Glomerular Filtration Rate 100 mL/min (>60); Est Glom Filt Rate - Afr Amer 121 mL/min (>60); Glucose 105 mg/dL (74-106); High Density Lipoprotein 46 mg/dL; Potassium 3.7 mmol/L (3.5-5.1); Protein, Total 6.4 g/dL (6.4-8.2); Sodium Level 139 mmol/L (136-145); Triglycerides 167 mg/dL; Very Low Density Lipoprotein 33 mg/dL (5-40)
== END | disposition home or self-care (01) ==
LOC: BIMLAB 08:59
PROVIDERS: PCP Internal Medicine; Referring Provider Nurse Practitioner Family; Visit Provider Nurse Practitioner Family
DX: E78.5 Hyperlipidemia, unspecified (principal)
CPT/HCPCS: 36415; 80053; 80061